=== PATIENT | male | born 2000 | race Caucasian/White ===

== ENCOUNTER 2023-01-17 08:05 | Day surgery (SDC) | payer OTHER ==
[~2023-01-17] VITALS: Ht 162.6 cm; Wt 70.6 kg
[2023-01-17] MEDS ORDERED: IBU400 MG PO (09:00)
[2023-01-17] MEDS ORDERED: ZOFRAN 4MG T4 MG/TAB PO (09:01)
[2023-01-17] MEDS ORDERED: FLOMAX 0.40.4 MG/CAP PO (09:01)
[2023-01-17 10:42] VITALS: BP 128/64; PULSE 60; TEMP 98.3
[2023-01-17 11:09] VITALS: BP 91/48; PULSE 62; TEMP 97.3
[2023-01-17 11:13] VITALS: BP 94/37; PULSE 62
[2023-01-17 11:15] VITALS: BP 92/40; PULSE 65
[2023-01-17 11:30] VITALS: BP 96/78; PULSE 59
[2023-01-17 11:45] VITALS: BP 102/59; PULSE 58
--- NOTE | 2023-01-17 12:05 | NUR ---
1109 RECEIVED POST OP REPORT FROM MARLEN BUENROSTRO. PT REMAINES MODERATELY SEDATED. GIANNA FROM ANESTHESIA TO REMAIN WITH PT UNTIL MORE ALERT. 1115 PT DROWSEY RESPONDING TO VOICE 1120 JUICE PROVIDED TO PT, PT ALERT AND ORIENTED 1135 PT GIVEN TOAST TO EAT. TOLERATED WELL 1150 DISCHARGE INSTRUCTIONS AND PT EDUCATION REVIEWED WITH PT. QUESTIONS INVITED. PT VERBALIZES UNDERSTANDING. 1200 PT TO LOBBY VIA WHEEL CHAIR FOR RIDE HOME WITH FRIEND VIA POV.
== END 2023-01-17 12:05 | disposition home or self-care (01) ==
LOC: SDCO 08:05
DX: N20.1 Calculus of ureter (principal)
CPT/HCPCS: J0690; J2704; J3010; J7120